=== PATIENT | male | born 1965 | race Caucasian/White ===

== ENCOUNTER → 2019-01-04 12:10 | Outpatient (CLI) | payer OTHER, SELFPAY ==
--- NOTE | 2019-01-04 | DI.MRI.S_ITS ---
PROCEDURE: MR ANKLE LT WO CON INDICATIONS: LEFT ANKLE INSTABILITY LEFT FOOT PAIN TECHNIQUE: Noncontrast sagittal T1 spin echo and T2 fast spin echo with fat saturation, axial proton density fast spin echo and T2 fast spin echo with fat saturation, coronal T1 spin echo and T2 fast spin echo with fat saturation through the ankle/hindfoot. COMPARISON: None. FINDINGS: Image quality: Excellent. Bones and joints: No bone marrow contusions or fractures. No hindfoot coalitions. No osteochondral injuries of the talar dome. No pathologic joint effusions. Medial structures: The distal posterior tibialis tendon is not well visualized suggestive of severe tendinopathy and interstitial tearing. The flexor digitorum longus, and flexor hallucis longus tendons are intact. The posterior tibial neurovascular bundle appears normal within the tarsal tunnel, without extrinsic mass effect. The deep layer (anterior and posterior tibiotalar ligaments) and superficial layer (tibionavicular, tibiospring, and tibiocalcaneal ligaments) of the deltoid ligament appear normal. The spring ligament components (superomedial calcaneonavicular, medioplantar oblique calcaneonavicular, and inferoplantar longitudinal ligaments) are intact. Lateral structures: The anterior talofibular, calcaneofibular, and posterior talofibular ligaments appear intact. More superiorly, the anterior and posterior tibiofibular ligaments appear intact, as is the intermalleolar ligament. The tibiofibular syndesmosis is normal in width at 2 mm or less. The peroneus longus and brevis tendons demonstrate normal location and morphology. Adjacent bony peroneal tubercle and retrotrochlear prominence are normal in size. The sinus tarsi demonstrates normal fatty signal, without edema, fibrosis, or cyst formation. Visualized sinus tarsi components (cervical ligament, interosseous talocalcaneal ligament, roots of the inferior extensor retinaculum) appear normal. The calcaneonavicular and calcaneocuboid components of the bifurcate ligament appear intact. The dorsal calcaneocuboid ligament appears intact. Anterior structures: The tibialis anterior, extensor hallucis longus, and extensor digitorum longus tendons appear intact. The dorsal talonavicular ligament appears intact. Posterior and plantar structures: Achilles tendon demonstrates mild intrasubstance signal change on image 12 series 6 suggestive of low-grade tendinopathy, unknown age. Medial and lateral bands of the plantar fascia are of normal thickness. No abductor digiti quinti muscle atrophy to suggest Miranda neuropathy. IMPRESSION: Severe posterior tibialis tendinopathy and interstitial tearing. Low-grade distal Achilles tendinopathy, unknown age. Dictated by: Stephen Sagastume M.D. on 01/04/2019 at 13:27 Approved by: Stephen Sagastume M.D. on 01/04/2019 at 13:34
--- NOTE | 2019-01-04 | DI.MRI.S_ITS ---
PROCEDURE: MRFOOT LT WO CON INDICATIONS: LEFT ANKLE INSTABILITY LEFT FOOT PAIN TECHNIQUE: Noncontrast sagittal T1 spin echo and T2 fast spin echo with fat saturation, long-axis T1 spin echo and T2 fast spin echo with fat saturation, short-axis T1 spin echo and T2 fast spin echo with fat saturation through the forefoot. COMPARISON: None. FINDINGS: Image quality: Excellent. Bones and joints: No bone marrow contusions or metatarsal stress fractures. Severe first MTP joint degeneration. There is possible prominent osteophyte versus ununited fracture fragment at the first MTP joint. This could be better assessed radiographically. The sesamoid bones appear in expected positions, without internal edema. No intraosseous lesions. Soft tissues: The visualized plantar foot muscles demonstrate normal signal and bulk. Distal insertion of the posterior tibialis tendon is poorly defined suggesting age-indeterminate severe tendinopathy/tear. The distal insertions of the peroneus brevis and longus tendons appear intact. The principal Lisfranc ligament appears intact. No soft tissue ganglion cysts or bursal fluid collections. Sagittal images demonstrate no evidence for plantar plate tears. IMPRESSION: Severe first MTP joint degeneration. Possible ununited osteophyte versus probably remote fracture fragment at the dorsal aspect of the first MTP joint. This could be better characterized with dedicated radiographs. Severe distal posterior tibialis tendinopathy/tear. Technically this finding is age-indeterminate. Dictated by: Stephen Sagastume M.D. on 01/04/2019 at 13:34 Approved by: Stephen Sagastume M.D. on 01/04/2019 at 13:42
== END ==
PROVIDERS: Visit Provider Podiatrist
DX: M25.372 Other instability, left ankle (principal); M25.572 Pain in left ankle and joints of left foot; M67.972 Unspecified disorder of synovium and tendon, left ankle and foot; M19.072 Primary osteoarthritis, left ankle and foot
CPT/HCPCS: 73718; 73721

== ENCOUNTER → 2019-07-05 06:45 | Outpatient (CLI) | payer OTHER, SELFPAY ==
--- NOTE | 2019-07-05 06:49 | DI.MRI.S_ITS ---
PROCEDURE: MR ANKLE LT WO CON INDICATIONS: Left ankle instability/pain/walking difficulty TECHNIQUE: Noncontrast sagittal T1 spin echo and T2 fast spin echo with fat saturation, axial proton density fast spin echo and T2 fast spin echo with fat saturation, coronal T1 spin echo and T2 fast spin echo with fat saturation through the ankle/hindfoot. COMPARISON: , MR, MR ANKLE LT WO CON, 01/04/2019, 12:50. FINDINGS: Image quality: Excellent. Bones and joints: No bone marrow contusions or fractures. No hindfoot coalitions. No osteochondral injuries of the talar dome. Small amount of fluid within the tibiotalar joint and subtalar joint is seen. No gross intra-articular loose body. Medial structures: Moderate tenosynovitis involving posterior tibialis tendon is again seen with interval increase amount of fluid surrounding tendon sheath. Mild flexor digitorum longus and flexor hallucis longus tenosynovitis is also noted. The The posterior tibial neurovascular bundle appears normal within the tarsal tunnel, without extrinsic mass effect. The deep layer (anterior and posterior tibiotalar ligaments) and superficial layer (tibionavicular, tibiospring, and tibiocalcaneal ligaments) of the deltoid ligament appear normal. The spring ligament components (superomedial calcaneonavicular, medioplantar oblique calcaneonavicular, and inferoplantar longitudinal ligaments) are intact. Lateral structures: The anterior talofibular, calcaneofibular, and posterior talofibular ligaments appear intact. More superiorly, the posterior tibiofibular ligaments appear intact, as is the intermalleolar ligament. Thickened anterior tibiofibular ligament with intrasubstance fluid signal is seen suggestive of sprain/intrasubstance partial thickness tear The tibiofibular syndesmosis is normal in width at 2 mm or less. The peroneus longus and brevis tendons demonstrate normal location and morphology. Adjacent bony peroneal tubercle and retrotrochlear prominence are normal in size. The sinus tarsi demonstrates normal fatty signal, without edema, fibrosis, or cyst formation. Visualized sinus tarsi components (cervical ligament, interosseous talocalcaneal ligament, roots of the inferior extensor retinaculum) appear normal. The calcaneonavicular and calcaneocuboid components of the bifurcate ligament appear intact. The dorsal calcaneocuboid ligament appears intact. Anterior structures: The tibialis anterior, extensor hallucis longus, and extensor digitorum longus tendons appear intact. The dorsal talonavicular ligament appears intact. Posterior and plantar structures: Achilles tendon is thickened with intrasubstance hyperintense T2 signal suggestive of tendinosis and intrasubstance partial-thickness tear not significantly changed from previous study Medial and lateral bands of the plantar fascia are of normal thickness. No abductor digiti quinti muscle atrophy to suggest Miranda neuropathy. IMPRESSION: 1. Moderate tenosynovitis involving posterior tibialis tendon, lobar intrasubstance partial-thickness tear is also likely present. Mild tenosynovitis involving the flexor digitorum longus and flexor hallucis longus tendons. 2. Suggestion of low grade anterior tibiofibular ligament sprain/partial thickness tear. 3. Chronic appearing tendinosis and intrasubstance partial-thickness tear involving mid to distal Achilles tendon unchanged from previous study. Dictated by: Ronn Lynn M.D. on 07/05/2019 at 9:04 Approved by: Ronn Lynn M.D. on 07/05/2019 at 9:12
== END ==
PROVIDERS: Visit Provider Podiatrist
DX: M25.372 Other instability, left ankle (principal); R26.2 Difficulty in walking, not elsewhere classified; M65.872 Other synovitis and tenosynovitis, left ankle and foot
CPT/HCPCS: 73721

== ENCOUNTER → 2020-07-18 14:41 | Outpatient (CLI) | payer OTHER, MEDICAID, SELFPAY ==
[2020-07-18 15:33] LABS: Hematocrit 43.4 % (41-53); Mean Corpuscular HGB Conc 34.4 % (30-36); Mean Corpuscular Hemoglobin 30.6 PG (26-34); Platelet Count 228 X10^3/uL (150-400); Red Blood Cell Count 4.88 X10^6/uL (4.5-5.9); Red Cell Distribution Width 13.7 % (11.6-14.8); White Blood Cell Count 7.1 X10^3/uL (4.5-11.0)
[2020-07-18 15:59] LABS: BUN Creatinine Ratio 11.4 (6-22); Blood Urea Nitrogen 13 mg/dL (9-20); Calcium 9.4 mg/dL (8.4-10.2); Carbon Dioxide 23 mmol/L (22-32); Chloride 104 mmol/L (98-107); Cholesterol 225 mg/dL (140-199); Estimated Glomerular Filt Rate > 60.0 mL/min (>60); Glucose 103 mg/dL (70-100); HDL Cholesterol 43 mg/dL (40-60); HEMOLYSIS < 15 (0-50); LDL Cholesterol Calculated 120 mg/dL (<100); Potassium 4.3 mmol/L (3.4-5.1); Sodium 137 mmol/L (137-145); Triglycerides 311 mg/dL (35-150)
== END ==
PROVIDERS: PCP Student in an Organized Health Care Education/Training Program; Referring Provider Student in an Organized Health Care Education/Training Program; Visit Provider Student in an Organized Health Care Education/Training Program
DX: Z13.220 Encounter for screening for lipoid disorders (principal); R68.89 Other general symptoms and signs; I10 Essential (primary) hypertension; R06.02 Shortness of breath
CPT/HCPCS: 36415; 80048; 80061; 85027

== ENCOUNTER → 2020-08-01 13:39 | Outpatient (ROUT) | payer OTHER, MEDICAID, SELFPAY ==
[2020-08-02 09:32] LABS: COVID19 Sendout Not Detected (Not Detect)
== END ==
PROVIDERS: PCP Student in an Organized Health Care Education/Training Program; Visit Provider Nurse Practitioner
DX: Z11.59 Encounter for screening for other viral diseases (principal)
CPT/HCPCS: 87635

== ENCOUNTER → 2020-08-04 07:58 | Outpatient (CLI) | payer OTHER, MEDICAID, SELFPAY ==
--- NOTE | 2020-08-09 09:32 | PM.PFT.1 ---
Pulmonary Function Test Referral & Results Date Patient Seen: 08/04/20 Requesting provider: Peña Severino Results: The spirometry demonstrates an FVC of 6.43 L which is 106% of predicted. The FEV1 was measured at 5.07 L which is 109% of predicted. The FEV1/FVC ratio was 79 which is 102% of predicted. Following the administration of bronchodilator there was no appreciable change to above normal numbers. Lung volumes show an SVC of 6.47 L which is 112% of predicted. The diffusing capacity was measured at 36.79 which is 91% of predicted. The maximum voluntary ventilation was normal Interpretation: This study demonstrates normal pulmonary function
== END ==
PROVIDERS: PCP Student in an Organized Health Care Education/Training Program; Referring Provider Student in an Organized Health Care Education/Training Program; Visit Provider Student in an Organized Health Care Education/Training Program
DX: R68.89 Other general symptoms and signs (principal); R07.89 Other chest pain; R06.02 Shortness of breath; R53.83 Other fatigue
CPT/HCPCS: 93016; 93017; 93018; 94060; 94726; 94729

== ENCOUNTER → 2020-08-04 08:03 | Outpatient (CLI) | payer OTHER, MEDICAID, SELFPAY ==
--- NOTE | 2020-08-04 09:15 | PM.TREADMILL ---
Cardiac Stress Test Report Referral & Results Date Patient Seen: 08/04/20 Time Patient Seen: 09:00 Requesting provider: Peña Severino Indication: Shortness of breath, fatigue Rest ECG: Normal sinus rhythm Procedure Note: (His insurance company denied a Cardiolite) Today following both written and verbal informed consent, the patient was exercised according to a standard [facility] protocol. The patient exercised for a total of 9 minutes 20 seconds achieving a maximum heart rate of 181. Patient's maximum systolic blood pressure was 210. This was an estimated 10.1 METs. Normal hemodynamic response to exercise. Chest pressure, fatigue, shortness of breath at peak exercise, consistent with his presenting symptoms. [address] deviations in inferior leads that resolved rapidly with rest. No change in rhythm. O2 sat maintained. Normal cardiopulmonary exam immediately post exercise. Normal exercise capacity for age (DORIS 0%). Impression: Intermediate probability for ischemia. Pulmonary function testing is pending. Recommend cardiology referral. Please note: Actual ECG tracings can be found in the PACS system.
== END ==
PROVIDERS: PCP Student in an Organized Health Care Education/Training Program; Referring Provider Student in an Organized Health Care Education/Training Program; Visit Provider Student in an Organized Health Care Education/Training Program
DX: R06.02 Shortness of breath (principal); R53.83 Other fatigue; R07.89 Other chest pain
CPT/HCPCS: 93016; 93017; 93018

== ENCOUNTER → 2020-12-20 09:28 | Outpatient (CLI) | payer OTHER, MEDICAID, SELFPAY ==
--- NOTE | 2020-12-20 09:32 | DI.ECHO.S_ITS ---
[place] [facility]---------+ [facility] +---------+ : : [address] : : : : [id number] : : : : Phone: [phone]+ Echocardiogram Report + + :Name: GEETHA NEGRETE Study Date: 12/20/2020 Height: 76 in : :[facility] ReadingLocation: Weight: 283 lb : : Gender: Male BSA: 2.6 m2 : :: 1965 Age: 55 yrs BP: 136/88 mmHg: :Reason For Study: SHORTNESS OF BREATH : :Ordering Physician: TOMER, : :GUILLERMINA Performed By: Danielle Tim : :Referring: GUILLERMINA JEFF N : + + Interpretation Summary The left ventricle is normal in size and wall thickness. The ejection fraction is estimated to be 60-65%. The right ventricle is normal in size and function. No significant valvular pathology seen. The IVC is of normal diameter and collapses greater than 50% with a sniff. This suggests a low right atrial pressure of 3 mm Hg. Procedure: A two-dimensional transthoracic echocardiogram with color flow and Doppler was performed. The study quality was technically adequate. There is no prior echocardiogram noted for this patient. The patient was in sinus rhythm with heart rates between 62-76 bpm during the exam. Left Ventricle: The left ventricle is normal in size and wall thickness. There is no thrombus. The ejection fraction is estimated to be 60-65%. There are no focal wall motion abnormalities. No significant diastolic dysfunction. Right Ventricle: The right ventricle is normal in size and function. Atria: Both atria are normal in size. There is no Doppler evidence for an interatrial shunt. Mitral Valve: The mitral valve is normal in structure and function. There is trace mitral regurgitation. Aortic Valve: The aortic valve is trileaflet. The aortic valve opens well. There is no aortic valve stenosis. No aortic regurgitation is present. Tricuspid Valve: The tricuspid valve is normal in structure and function. There is mild tricuspid regurgitation. Pulmonary artery pressures cannot be estimated because of the lack of a measurable TR jet velocity but the IVC suggests a CVP of around 3 mmHg. Pulmonic Valve: The pulmonic valve is not well visualized. There is no pulmonic valvular regurgitation. Great Vessels: The aortic root is normal size. The dimensions of the ascending aorta are normal. The IVC is of normal diameter and collapses greater than 50% with a sniff. This suggests a low right atrial pressure of 3 mm Hg. Pericardium/ Pleura There is no pericardial effusion. There is no pleural effusion. MMode/2D Measurements & Calculations LVIDd: 5.3 cm LVOT diam: 2.1 cm LVIDs: 3.5 cm Ao root diam: 3.5 cm FS: 33.5 % asc Aorta Diam: 3.2 cm EPSS: 0.70 cm Ao Arch Diam (Prox Trans): 3.1 cm IVSd: 0.68 cm LVPWd: 0.79 cm LV cordero. diameter/BSA (cm/m^2): 2.1 LV sys. diameter/BSA (cm/m^2): 1.4 LA A2 area: 20.8 cm2 RA long axis: 4.9 cm LA A4 area: 18.2 cm2 RA area: 13.5 cm2 LA length (vol): 5.0 cm RA vol: 31.4 ml LA vol: 64.0 ml RA : 12.2 ml/m2 LA vol index: 24.9 ml/m2 IVC diam: 1.4 cm RVD1 (basal): 3.8 cm TAPSE: 2.4 cm Doppler Measurements & Calculations Ao V2 max: 106.3 cm/sec LVOT Max Gideon: 95.7 cm/sec Ao V2 mean: 77.8 cm/sec LV V1 max P.7 mmHg Ao max P.5 mmHg LV V1 VTI: 19.6 cm Ao mean P.7 mmHg SHILOH(I,D): 3.3 cm2 Ao V2 VTI: 21.3 cm SHILOH(V,D): 3.2 cm2 sev ratio: 0.92 SHILOH indexed to BSA (cm^2/m^2): 1.3 MV E max gideon: 75.7 cm/sec PA V2 max: 65.6 cm/sec MV A max gideon: 71.0 cm/sec PA V2 mean: 46.0 cm/sec MV E/A: 1.1 PA mean P.95 mmHg Med Peak E' Gideon: 8.9 cm/sec PA pr(Accel): 24.2 mmHg E/E' med: 8.5 Lat Peak E' Gideon: 11.4 cm/sec E/E' lat: 6.6 E/e' average: 7.6 MV dec time: 0.20 sec SV(LVOT): 70.9 ml Reading Physician:10:47 AM
== END ==
PROVIDERS: PCP Student in an Organized Health Care Education/Training Program; Referring Provider Nurse Practitioner; Visit Provider Nurse Practitioner
DX: I07.1 Rheumatic tricuspid insufficiency (principal); R06.02 Shortness of breath
CPT/HCPCS: 93306